=== PATIENT | female | born 1940 | race Caucasian/White ===

== ENCOUNTER 2018-04-07 17:27 | Emergency (ER) | payer MEDICARE, BC ==
[~2018-04-07] VITALS: Ht 160 cm; Wt 59.1 kg
[2018-04-07 17:28] VITALS: TEMP 99.4
[2018-04-07 18:04] LABS: BASO % 0.6 % (0.0-2.0); EOS # 0.1 (0.0-0.7); EOS % 2.1 % (0-4.0); GRAN # 4.6 (1.4-6.5); GRAN % 66.9 % (42.2-75.2); HEMATOCRIT 34.4 % (37.0-47.0); HEMOGLOBIN 11.4 g/dl (12.5-16.0); LYMPH # 1.6 (1.2-3.4); LYMPH % 22.7 % (20.0-51.0); MEAN CELL VOLUME 95 fl (80.0-100.0); MEAN CORPUSCULAR HEMOGLOBIN 31 pg (27.0-31.0); MEAN CORPUSCULAR HGB CONC 33 g/dl (33.0-37.0); MEAN PLATELET VOLUME 10.2 fl (7.4-10.4); MONO # 0.5 (0.1-0.6); MONO % 7.6 % (1.7-9.3); PLATELET COUNT 125 K/mm3 (130-400); RED BLOOD COUNT 3.64 M/mm3 (4.10-5.30); REDCELL DISTRIBUTION WIDTH-CV 12.4 % (11.5-14.5)
[2018-04-07 18:13] LABS: ALANINE AMINOTRANSFERASE 40 U/L (9-52); ALBUMIN 3.4 gm/dL (3.5-5.0); ALKALINE PHOSPHATASE 67 U/L (50-136); ANION GAP 10 mmol/L (7-16); AST,SGOT 35 U/L (15-37); BILIRUBIN,TOTAL 0.4 mg/dL (0.0-1.0); BLOOD UREA NITROGEN 21 mg/dL (7-17); CALCIUM 8.2 mg/dL (8.4-10.2); CARBON DIOXIDE 22 mmol/L (22-30); CHLORIDE 105 mmol/L (98-107); CREATININE, serum 1.11 mg/dL (0.52-1.25); GLUCOSE 115 mg/dL (74-106); POTASSIUM 3.5 mmol/L (3.4-5.0); SODIUM 137 mmol/L (137-145); TOTAL PROTEIN 6.3 gm/dL (6.4-8.2)
[2018-04-07] MEDS ORDERED: HUMIRA40 MG/0.8 SQ (18:16)
[2018-04-07] MEDS ORDERED: ZANTAC 150MG T150 MG PO (18:16)
[2018-04-07] MEDS ORDERED: ZOVIRAX400 MG PO (18:16)
[2018-04-07] MEDS ORDERED: PRAVACHOL 20MG20 MG PO (18:17)
[2018-04-07] MEDS ORDERED: ESTROGEL0.06% TOP (18:17)
[2018-04-07] MEDS ORDERED: VAGIFEM10 MCG VG (18:17)
[2018-04-07] MEDS ORDERED: DITROPAN XL15 MG PO (18:18)
[2018-04-07] MEDS ORDERED: DESYREL 50MG50 MG PO (18:19)
[2018-04-07] MEDS ORDERED: SYNTHROID 0.10.15 MG PO (18:19)
[2018-04-07] MEDS ORDERED: FOLIC ACID 11 MG/TA1 PO (18:19)
[2018-04-07] MEDS ORDERED: CALCIUM 600MG+D1 TAB PO (18:20)
[2018-04-07] MEDS ORDERED: NIASPAN1000 MG PO (18:20)
[2018-04-07] MEDS ORDERED: OMEGA-3 FISH1000 MG PO (18:21)
[2018-04-07] MEDS ORDERED: MULTI VITAMINS1 TAB PO (18:22)
[2018-04-07] MEDS ORDERED: FEOSOL45 MG PO (18:22)
[2018-04-07] MEDS ORDERED: CLARITIN 1010 MG/TAB PO (18:22)
[2018-04-07] MEDS ORDERED: ASPIRIN 81M81 MG/TA2 PO (18:23)
[2018-04-07 18:28] LABS: TROPONIN-I < 0.012 ng/mL (0.000-0.034)
[2018-04-07 19:36] VITALS: BP 131/66; PULSE 79
== END 2018-04-07 20:11 | disposition home or self-care (01) ==
LOC: COL.ER 17:27
PROVIDERS: Emergency Medicine
DX: T67.5XXA Heat exhaustion, unspecified, initial encounter (principal); E86.0 Dehydration; E03.9 Hypothyroidism, unspecified; E78.5 Hyperlipidemia, unspecified; M06.9 Rheumatoid arthritis, unspecified; Z90.49 Acquired absence of other specified parts of digestive tract; Z90.710 Acquired absence of both cervix and uterus; Z79.82 Long term (current) use of aspirin
CPT/HCPCS: J7030